=== PATIENT | male | born 1990 | race Caucasian/White ===

== ENCOUNTER 2017-07-25 07:51 | Emergency (ER) | payer OTHER ==
[~2017-07-25 07:51] MED LIST: AMOXICILLIN500 M1 PO; NO MEDICATIONS; SUDAFED PLUS PO; VOLTAREN75 MG PO
[2017-07-25 08:45] LABS: URINE SOURCE CLEAN CATCH
[2017-07-25 08:47] LABS: URINE APPEARANCE CLEAR; URINE BILIRUBIN NEG (NEG); URINE BLOOD TRACE-INTACT (NEG); URINE COLOR YELLOW; URINE GLUCOSE NEG (NORM); URINE KETONE NEG (NEG); URINE LEUKOCYTE ESTERASE 1+ (NEG); URINE NITRATE NEG (NEG); URINE PROTEIN NEG (NEG); URINE UROBILINOGEN 0.2 MG/DL (NORM)
[2017-07-25 08:49] LABS: MICRO INDICATED? YES
[2017-07-25 09:30] LABS: CULTURE INDICATED? NO; URINE BACTERIA NEG (NEG); URINE RBC 0-2 /[HPF] (0-2)
[2017-07-27 22:30] LABS: CHLAMYDIA TRACH Not Detected (Not Detected); N GONOR Not Detected (Not Detected)
== END 2017-07-25 09:40 | disposition home or self-care (01) ==
LOC: SED 07:51
PROVIDERS: Student in an Organized Health Care Education/Training Program
DX: N39.0 Urinary tract infection, site not specified (principal); H66.92 Otitis media, unspecified, left ear
CPT/HCPCS: 81003; 87491; 87591; 99283